=== PATIENT | female | born 1945 | race Caucasian/White ===

== ENCOUNTER 2019-03-23 17:16 | Inpatient (IN) ==
--- NOTE | 2019-03-23 18:05 | PROVIDER DOCUMENTATION ---
HPI-Musculoskeletal Pain/Inj - GENERAL Chief Complaint: Fall Stated Complaint: fall Time Seen by Provider: 03/23/19 17:20 Source: patient, family - HX OF PRESENT ILLNESS-MUSKULOSKELTAL Nature of Presenting Problem: [id number] presents to the ER with c/o left hip and leg pain after falling out of her chair. She states she was attempting to sit and missed the chair all together. She was unable to pull herself out of the floor and called EMS. Quality of Pain: reports: sharp Severity in ED: severe Onset/Duration: 1 hour ago Timing: constant Modifying Factors: improves with: immobilization Any recent injury?: Yes (fall) Locality of Occurance: Home Similar Symptoms Previously?: No Recently seen or treated by another doctor?: No - FALL INJURY Location of Pain/Injury: reports: pelvis (L hip) Pain Radiation: reports: no radiation (left leg) Reason for Fall: reports: other (missed the chair) Symptoms prior to fall:: reports: none Loss of Consciousness: no loss of consciousness Injury Associated Symptoms: reports: unable to bear weight - HIP/PELVIS PAIN/INJURY Hip Pain Location: reports: hip (L) Pain Radiation: reports: lower legs (left) - LOWER EXTREMITY PAIN/INJURY Lower Extremities Pain: hip: left Review of Systems - Adult - REVIEW OF SYSTEMS - ADULT Constitutional: reports: see HPI. denies: chills, fever Eyes: reports: no symptoms reported Ears, Nose, Mouth & Throat: reports: no symptoms reported Cardiovascular: reports: no symptoms reported. denies: chest pain Respiratory: reports: no symptoms reported. denies: dyspnea on exertion, shortness of breath, wheezing Gastrointestinal: reports: no symptoms reported Genitourinary: reports: no symptoms reported Musculoskeletal: reports: see HPI, joint pain (left hip and pelvis) Integumentary: reports: no symptoms reported Neurological: reports: no symptoms reported Psychiatric: reports: no symptoms reported Endocrine: reports: no symptoms reported Hematologic/Lymphatic: reports: no symptoms reported Allergic/Immunologic: reports: no symptoms reported All Other Systems: Reviewed and Negative Past History - Adult - PAST MEDICAL HISTORY-ADULT Review of Records: reports: Old Records Reviewed, Nursing Assessment Review, Medications Reviewed, Social history reviewed & non-contributory. Major Childhood Illnesses: reports: denies history Cardiovascular: reports: CAD, HTN, hyperlipidemia Respiratory: reports: asthma Gastrointestinal: reports: denies history Obstetrical/Gynecological: reports: denies history Genitourinary: reports: kidney disease Musculoskeletal: reports: denies history Neurological: reports: denies history Endocrine/Immune: reports: Diabetes Other Conditions: reports: denies history - PRIOR SURGERIES/PROCEDURES Surgical/Procedure History: reports: hysterectomy, orthopedic (extremity), other (parathyroid surgery) - IMMUNIZATION STATUS Childhood Immunizations: See Nurse Assessment Flu Vaccine: See Nurse Assessment - FAMILY HISTORY Family History: CAD over 55 yo, sudden , CAD under 55yo - SOCIAL HISTORY Substance Use: none/never Alcohol Use Frequency: never Living Situation: family Physical Exam-Injury Related - Physical Exam-Injury Related Initial Vital Signs Reviewed: Yes General Appearance: alert, mild distress Eyes: PERRL/EOMI, pink conjunctivae Head, Ears, Nose, Mouth & Throat: normocephalic/atraumatic, moist mucous membranes Neck: non-tender, full range of motion, supple, normal inspection Respiratory: chest non-tender, lungs clear, normal breath sounds Cardiovascular: normal peripheral pulses, regular rate, rhythm Peripheral Pulses: radial (R): 2+, radial (L): 2+, dorsalis-pedis (R): 2+, dorsalis-pedis (L): 2+ Abdominal Exam: normal bowel sounds, non tender, soft Extremity: other ( limb shortening with external rotation of LLE) Integumentary: normal color, warm/dry Neurologic: no motor/sensory deficits Psych/Mental Status: normal mood/affect, oriented x 3 - Glascow Coma Score Best Eye Response ([place]): (4) open spontaneously Best Verbal Response ([place]): (5) oriented Best Motor Response ([place]): (6) obeys commands [place] Total: 15 Progress - PLAN OF CARE/RESULTS Progress/Plan/Lab Results: Vital Signs - 8 hr 03/23/19 17:32 Temperature 98.2 F Pulse Rate 85 Respiratory Rate 16 Blood Pressure 161/90 Laboratory Results - last 24 hr 03/23/19 03/23/19 03/23/19 17:53 17:53 17:53 WBC 4.21 L RBC 2.96 L Hgb 9.0 L Hct 27.4 L MCV 92.6 MCH 30.4 MCHC 32.8 L RDW Std Deviation 13.5 Plt Count 217 MPV 10.7 H Immature Gran % (Auto) 1.2 H Neut % (Auto) 64.6 Lymph % (Auto) 23.5 [place] % (Auto) 8.1 Eos % (Auto) 2.1 Baso % (Auto) 0.5 Immature Gran # (Auto) 0.05 H Neut # (Auto) 2.72 Lymph # (Auto) 0.99 L [place] # (Auto) 0.34 Eos # (Auto) 0.09 Baso # (Auto) 0.02 Sodium 145 Potassium 3.7 Chloride 111 H Carbon Dioxide 21 L Anion Gap 13 BUN 42 H Creatinine 1.2 H Estimated GFR/1.73 m2 44 BUN/Creatinine Ratio 35 Glucose 176 H Calculated Osmolality 303 Calcium 8.1 L Total Bilirubin 0.25 AST 21 ALT 18 Alkaline Phosphatase 56 Total Protein 5.8 L Albumin 3.7 Globulin 2.1 Albumin/Globulin Ratio 1.8 Urine Source CATH Urine Color STRAW Urine Turbidity CLEAR Urine pH 7.0 Ur Specific [place] 1.008 Urine Protein NEGATIVE Ur Glucose (Stick) NEGATIVE Ur Ketones (Stick) NEGATIVE Urine Blood NEGATIVE Urine Nitrite NEGATIVE Urine Bilirubin NEGATIVE Urobilinogen Dipstick NORMAL Urine Leukocytes NEGATIVE Urine WBC (Auto) <10 Urine RBC (Auto) <10 U Epithel Cells (Auto) <10 Urine Bacteria (Auto) NEGATIVE Orders Category Date Time Status [place] [facility] Insertion ORDERED Care 03/23/19 17:[address] HEAD W/O CONTRAST [CT] Stat Exams 03/23/19 17:37 Ordered XRAY PELVIS W/HIP 2-3VW LT [RAD] Stat Exams 03/23/19 17:34 Completed CBC WITH ELECTRONIC DIFF [HEME] Stat Lab 03/23/19 17:53 Completed COMPREHENSIVE METABOLIC PANEL [CHEM] Stat Lab 03/23/19 17:53 Completed UA NIMS W/REFLEX CULT [URINALYSIS] Stat Lab 03/23/19 17:53 Completed 0.9% Sodium Chloride Inj [Ns] 1,000 ml Med 03/23/19 19:30 Ordered IV 125 mls/hr Morphine Med 03/23/19 18:53 Discontinued 2 mg IV NOW ONE EKG [EKG] Stat Ther 03/23/19 17:35 Ordered patient and family verbalize an understanding of POC and agree with treatment rendered here today. Result Diagrams: 03/23/19 17:53 03/23/19 17:53 - XRAY 1 XRAY: Left XRAY Study: Hip (FINDINGS: There is an intertrochanteric fracture to the left hip. Mild compaction and rotation. The femoral head is not dislocated. No fracture to the bony pelvis. Severe atherosclerosis. IMPRESSION: Intertrochanteric fracture to the left hip.) - CONSULTS/PCP/HOSPITALIST Notification #1 *Consult/PCP/Hospitalist*: Dr Barker Time Discussed: 19:29 Reason/Comments: hip fracture Consult Disposition: Admit (admit to hospitalist and place on consult list) #2 Consult: Dr Reece Time Discussed: 19:32 Reason/Comments: Hip Fracture Consult Disposition: Admit Departure - Departure Date of Disposition Decision: 03/23/19 Time of Disposition Decision: 19:32 DIAGNOSIS: Intertrochanteric fracture of left hip Qualifiers: Encounter type: initial encounter Fracture type: closed Disposition: ADMITTED INPATIENT 09 Certified Medical Emergency: Emergent Condition: Critical Additional Freetext Instructions: ED Follow Up Instructions: You have been treated by a care provider in the Emergency Department. These instructions are being provided to you so you can have an understanding of how to care for yourself upon discharge. Upon discharge from the Emergency Department, you are responsible for making arrangements for follow-up care by a physician of your choice. Take all prescribed medications as directed. Return to the Emergency Department immediately for any new or worsening symptoms. You may call the Physician Referral phone number at [phone] to obtain a list of Physicians who are taking new patients. Referrals and Follow-Ups: Armando Dawn [Primary Care Provider] - - Critical Care Note This patient required my direct & personal management of CC.: No Attestation - Physician/ WILFREDO Attestation Patient care was provided by Advanced Practice Provider:: Yes Advanced Practice Provider:: Nayan Dietz Advanced Practice Provider documentation review:: The Mid-level provider documentation, treatment plan and medical decision making was reviewed by the physician who agrees with all treatment and medical decision making by the P. The physician spent face to face time with patient:: No Advanced Practice Provider documentation review:: Supervising physician onsite and consulted in the evaluation and care of this patient. The physician did not have a face to face encounter with the patient.
[2019-03-23 18:32] LABS: URINE SOURCE CATH
[2019-03-23 18:39] LABS: BILIRUBIN URINE NEGATIVE (NEGATIVE); BLOOD URINE NEGATIVE (NEGATIVE); COLOR STRAW; GLUCOSE URINE NEGATIVE (NEGATIVE); KETONE URINE NEGATIVE (NEGATIVE); LEUKOCYTES URINE NEGATIVE (NEGATIVE); NITRITE URINE NEGATIVE (NEGATIVE); PROTEIN URINE NEGATIVE (NEGATIVE); SP GRAVITY URINE 1.008; TURBIDITY URINE CLEAR (CLEAR); UROBILINOGEN URINE NORMAL (NORMAL)
[2019-03-23 18:41] LABS: UR EPITHELIAL CELLS <10 /HPF (<10); URINE BACTERIA NEGATIVE /HPF; URINE RBC <10 /HPF (<10); URINE WBC <10 /HPF (<10)
[2019-03-23 18:42] LABS: BASO# 0.02 X1000 (0.0-0.2); BASO% 0.5 % (0.0-0.8); EOS# 0.09 X1000 (0.0-0.7); EOS% 2.1 % (0.0-10.0); HEMATOCRIT 27.4 % (37.0-47.0); IMM GRAN# 0.05 X1000 (0.0-0.04); IMM GRAN% 1.2 % (0.0-0.5); LYMPH# 0.99 X1000 (1.2-3.4); LYMPH% 23.5 % (20.5-51.1); MCH 30.4 PG (27-31); MCHC 32.8 g/dL (33-37); MCV 92.6 FL (81-99); MONO# 0.34 X1000 (0.11-0.59); MONO% 8.1 % (1.7-9.3); MPV 10.7 FL (7.4-10.4); NEUT# 2.72 X1000 (1.4-6.5); NEUT% 64.6 % (42.2-75.2); PLT 217 X1000 (130-400); RBC 2.96 XMIL (4.2-5.4); RDW 13.5 % (11.5-14.5); WBC 4.21 X1000 (4.8-10.8)
[2019-03-23] MEDS ORDERED: MORPHINE IV ONE ×2 (18:53→20:25)
[2019-03-23 19:11] LABS: CALCIUM 8.1 mg/dL (8.8-10.2); CREATININE 1.2 mg/dL (0.5-0.9); POTASSIUM 3.7 mmol/L (3.5-5.1); TOTAL BILIRUBIN 0.25 mg/dL (0.20-1.00)
[2019-03-23 19:12] LABS: ALB/GLOB RATIO 1.8; ALBUMIN 3.7 g/dL (3.5-5.0); TOTAL PROTEIN 5.8 g/dL (6.3-8.3)
--- NOTE | 2019-03-23 19:16 | Diag Imaging Result Doc PS360 ---
EXAM: XRAY PELVIS W/HIP 2-3VW LT HISTORY: Fall TECHNIQUE: Pelvis and left hip, four views COMPARISON: None. FINDINGS: There is an intertrochanteric fracture to the left hip. Mild compaction and rotation. The femoral head is not dislocated. No fracture to the bony pelvis. Severe atherosclerosis. IMPRESSION: Intertrochanteric fracture to the left hip. Electronically signed by Andrea Mcdonnell 03/23/2019 7:13 PM
[2019-03-23] MEDS ORDERED: NS 1,000 ML IV ONE (19:30)
[2019-03-23] MEDS ORDERED: LASIX PO PRN (19:34)
[2019-03-23] MEDS ORDERED: CATAPRES-TTS-3 TD SCH (19:45)
--- NOTE | 2019-03-23 20:06 | Diag Imaging Result Doc PS360 ---
EXAM: CT HEAD W/O CONTRAST HISTORY: fall TECHNIQUE: CT head without contrast COMPARISON: None. FINDINGS: No parenchymal hemorrhage. No epidural or subdural hematoma. No subarachnoid hemorrhage. Chronic microvascular ischemic changes. No mass identified on this noncontrasted exam. No hydrocephalus. No skull fracture. IMPRESSION: No hemorrhage. No injury. This exam was performed using automated exposure control, adjustment of mA or kV according to patient size, and/or use of iterative reconstruction technique. Electronically signed by Andrea Mcdonnell 03/23/2019 8:03 PM
[2019-03-23] MEDS ORDERED: VASOTEC PO SCH (21:00)
[2019-03-23] MEDS ORDERED: RANEXA PO SCH (21:00)
[2019-03-23] MEDS ORDERED: TYLENOL PO PRN (21:29)
[2019-03-23] MEDS ORDERED: ZOFRAN IV PRN (21:29)
[2019-03-23] MEDS ORDERED: OXY IR PO PRN (21:29)
--- NOTE | 2019-03-23 21:41 | HISTORY AND PHYSICAL ---
This is a patient of Dr. Armando Dawn. REASON FOR ADMISSION: Left hip pain off mechanical fall this evening. HISTORY OF PRESENT ILLNESS: Ms. Hannah Avitia is a 73-year-old woman who has a past medical history of congestive heart failure with EF of 60% to 65% in October 2017, COPD, hypertension, coronary artery disease, chronic kidney disease, type 2 diabetes, hyperlipidemia. She reports that she was trying to sit on her chair and missed it. She slipped on the floor and landed on the left side of her hip. She denies any loss of consciousness or hitting her head on the floor. As soon as she hit the floor, her grandson came into the room and tried to get up, but because she was in such excruciating pain the whole idea was ditched. They then called EMS, brought her into the ER, and her radio-imaging findings done in the ER of the hip and pelvis showed the following findings: An intertrochanteric fracture of the left hip is noted. Dr. Barker, the orthopedic surgeon, was notified and wants the hospitalist service to admit and he will see the patient tomorrow. Other than the pain in her left hip or left leg, she has no other complaints other than chronic constipation, but denies any cardiorespiratory symptoms. No genitourinary symptoms. Denies any new arthralgias or rash. No polyuria or polydipsia. No headache or visual symptoms. REVIEW OF SYSTEMS: Twelve system review was done. Positive findings noted as above. ALLERGIES: Bactrim and niacin and metformin. HOME MEDICATIONS: Patient is taking amlodipine 10 mg daily, Atorvastatin 10 mg daily, Catapres TTS patch every weekly, Lasix 40 mg b.i.d. p.r.n., Neurontin 300 mg t.i.d., Synthroid 88 mcg daily, omeprazole 20 mg daily, Ranexa 500 mg b.i.d., Requip 0.5 mg t.i.d., Enalapril 20 mg b.i.d., aspirin 81 mg daily, Januvia 50 mg daily, Protonix 40 mg daily, ferrous sulfate 325 mg daily, Tricor 145 mg daily, B12 at 1000 mcg daily, albuterol inhaler 2 puffs every 6 hours p.r.n., tizanidine 4 mg b.i.d. PAST SURGICAL HISTORY: She has had a bowel large bowel obstruction with adhesiolysis. She has had a thyroidectomy and parathyroidectomy, appendectomy, neck surgery x2, hysterectomy, right shoulder surgery, cataract surgery. SOCIAL HISTORY: Does not smoke, drink, or use drugs. She is a . LABORATORY WORK: White count 4000, hemoglobin and hematocrit of 9 and 27, platelets 217,000. Normal differential. BUN is 42, creatinine 1.2. Glucose is 176, calcium 8.5. Urinalysis is clean. Head CT no acute intracranial process. EKG pending, not available for review. PHYSICAL EXAMINATION: VITAL SIGNS: On examination, blood pressure 161/90, heart rate 85, respirations 18, temperature is 98.2 degrees. GENERAL: She is an elderly, overweight woman who is in moderate distress from the pain in her left hip. She is alert and oriented to person and time. HEENT: Head is normocephalic, atraumatic. Eyes, BRYAN, EOMI. She is anicteric, not pale. ENT and oropharyngeal exam is grossly normal. No exudates or erythema. No cyanosis. NECK: Supple. No JVD or carotid bruit. No thyromegaly. No hepatojugular reflux. CHEST: Clear when auscultated with good air entry both lung alex. CARDIOVASCULAR: First and second heart sounds are heard. A soft 2/6 ejection systolic murmur. Rhythm is regular. ABDOMEN: Protuberant, soft, nontender. No mass, megaly, bowel sounds are normal. RECTAL: Deferred at this time. EXTREMITIES: Patient has good distal pulses, which are symmetrical, regular. She has 1+ pitting edema both lower extremities. No clubbing or peripheral cyanosis. NEUROLOGICAL: Grossly normal. No focal deficits appreciated. SKIN: Intact. No breakdown, lesions or erythema. MUSCULOSKELETAL: Exam is grossly normal except for sore except for a shortened left lower extremity, which is slightly externally rotated. ASSESSMENT: 1. Left intertrochanteric fracture of the left hip. 2. Chronic diastolic heart failure. 3. Coronary artery disease. 4. Type 2 diabetes. 5. Anemia of possible chronic inflammation. 6. Hypothyroidism. 7. Hyperlipidemia. 8. Hypertension. PLAN: Patient will be admitted to our service with Dr. Barker covering the orthopedic surgeon consulting. Should be kept n.p.o. overnight, and surgical intervention will be determined by Dr. Barker. For now, we will keep treating the patient symptomatically. She can continue antihypertensives provided her systolic blood pressure is less than 140 to 145 so as to avoid perioperative acute kidney injury. Otherwise, nothing acute to address. I have held the patient's aspirin, and we recommend start initiation of an 81 mg aspirin postoperatively or at least at the discretion of the orthopedic surgeon due to her underlying coronary artery disease. cc: MD Armando Ramos MD
[2019-03-23] MEDS: HUMALOG SUBQ SCH (22:00)
[2019-03-23] MEDS: MIRALAX PO SCH (22:00)
[2019-03-24] MEDS: NS 1,000 ML IV SCH ×4 (01:30→21:56)
[2019-03-24] MEDS: MORPHINE IV PRN ×2 (01:30→05:25)
[2019-03-24 05:56] LABS: BASO# 0.02 X1000 (0.0-0.2); BASO% 0.4 % (0.0-0.8); EOS# 0.11 X1000 (0.0-0.7); EOS% 2.4 % (0.0-10.0); HEMATOCRIT 30.6 % (37.0-47.0); IMM GRAN# 0.03 X1000 (0.0-0.04); IMM GRAN% 0.7 % (0.0-0.5); LYMPH# 1.42 X1000 (1.2-3.4); MCH 30.2 PG (27-31); MCHC 32.7 g/dL (33-37); MCV 92.4 FL (81-99); MONO# 0.37 X1000 (0.11-0.59); MONO% 8.1 % (1.7-9.3); MPV 10.6 FL (7.4-10.4); NEUT# 2.63 X1000 (1.4-6.5); NEUT% 57.4 % (42.2-75.2); PLT 223 X1000 (130-400); RBC 3.31 XMIL (4.2-5.4); RDW 13.9 % (11.5-14.5); WBC 4.58 X1000 (4.8-10.8)
[2019-03-24 06:04] LABS: RETIC% 1.6 % (0.8-2.1); RETIC-HE 34.1 PG (28.2-36.6)
[2019-03-24 06:19] LABS: MAGNESIUM 1.6 mg/dL (1.5-2.7)
[2019-03-24 06:20] LABS: CALCIUM 9.2 mg/dL (8.8-10.2); CREATININE 1.2 mg/dL (0.5-0.9); POTASSIUM 3.9 mmol/L (3.5-5.1)
[2019-03-24 06:58] LABS: TSH 6.27 uIUmL (0.27-4.20)
[2019-03-24] MEDS ORDERED: SYNTHROID PO SCH (07:00)
[2019-03-24] MEDS ORDERED: PRILOSEC PO SCH (07:00)
[2019-03-24] MEDS: HUMALOG SUBQ SCH ×4 (07:11→22:09)
--- NOTE | 2019-03-24 08:11 | ORTHOPAEDICS CONSULTATION ---
DATE: 03/24/201 HISTORY OF PRESENT ILLNESS: Ms. Avitia is seen status post a fall with left hip pain. She was admitted by the Hospitalist. She complains of pain and tenderness about the left hip. PAST MEDICAL HISTORY: Significant for history of heart failure in the past, hypertension, coronary artery disease, chronic renal disease, type 2 diabetes, hyperlipidemia. MEDICATIONS: As listed per the hospital admission. SOCIAL HISTORY: She is a household ambulator at best. Resides with family in the area. PHYSICAL EXAMINATION: Reveals no significant tenderness about the spine, upper extremities or right lower extremity. She has tenderness to palpation over the left hip. There are no open wounds. She is motor and sensory intact. IMAGING: X-rays reviewed, show a left intertrochanteric hip fracture. ASSESSMENT: Left intertrochanteric hip fracture. PLAN: We will plan on proceeding with surgical stabilization of the hip. I have discussed the risks and benefits with the patient and family, including no guarantees regarding outcome, possibility of nonunion, malunion, risk of bleeding, infection, loss of limb or life, damage to tendon, nerve, or blood vessel and other imponderables. She understands this and is willing to proceed. We will plan on proceeding with that in the near future. cc: Marciano Barker MD
[2019-03-24] MEDS ORDERED: FENTANYL ONE (08:20)
[2019-03-24] MEDS ORDERED: VERSED ONE (08:20)
[2019-03-24] MEDS ORDERED: DIPRIVAN 1% ONE (08:21)
[2019-03-24] MEDS ORDERED: REQUIP PO SCH (09:00)
[2019-03-24] MEDS ORDERED: NEURONTIN PO SCH (09:00)
[2019-03-24] MEDS ORDERED: NORVASC PO SCH (09:00)
[2019-03-24] MEDS ORDERED: LIPITOR PO SCH (09:00)
[2019-03-24] MEDS ORDERED: KEFZOL 2 GM/D5W 2 GM/50 ML IVPB ONE (09:07)
--- NOTE | 2019-03-24 09:13 | EKG Report ---
Test Performed on : 03/24/2019 06:26:05 AM Test Reason : chest pain Blood Pressure : / mmHG Vent. Rate : 092 BPM Atrial Rate : 092 BPM P-R Int : 188 ms QRS Dur : 104 ms QT Int : 384 ms P-R-T Axes : 051 001 003 degrees QTc Int : 474 ms Normal sinus rhythm. Normal ECG When compared with ECG of 17-JUL-2018 11:35, T wave inversion no longer evident in Anterior leads Confirmed by Josephine Lunsford MD ([id number]) on 03/26/2019 8:33:34 AM
[2019-03-24] MEDS ORDERED: NEOSPORIN G.U. IRRIGANT ONE (09:43)
[2019-03-24] MEDS ORDERED: VENTOLIN HFA ONE (10:07)
[2019-03-24] MEDS ORDERED: ZOFRAN ONE (10:07)
[2019-03-24] MEDS ORDERED: OFIRMEV 1000 MG/ISOTONIC SOLN 1,000 MG/100 ML BOTTLE ONE (10:07)
[2019-03-24] MEDS ORDERED: DECADRON ONE (10:07)
[2019-03-24] MEDS ORDERED: NEO-SYNEPHRINE ONE (10:07)
[2019-03-24] MEDS ORDERED: XYLOCAINE-MPF 2% ONE (10:07)
[2019-03-24] MEDS: MORPHINE ONE ×3 (10:42→11:51)
[2019-03-24] MEDS ORDERED: NS 1,000 ML ONE (10:53)
[2019-03-24] MEDS ORDERED: MILK OF MAGNESIA PO PRN (11:38)
[2019-03-24] MEDS ORDERED: MORPHINE IV PRN (11:38)
[2019-03-24] MEDS: MIRALAX PO SCH ×2 (11:43→21:56)
[2019-03-24] MEDS ORDERED: HALDOL IV PRN (11:45)
--- NOTE | 2019-03-24 13:23 | OPERATIVE NOTE ---
PROCEDURE DATE: 03/23/2019 PREOPERATIVE DIAGNOSIS: Intertrochanteric left hip fracture. POSTOPERATIVE DIAGNOSIS: Intertrochanteric left hip fracture. PROCEDURE: Trochanteric femoral nail fixation, left intertrochanteric hip fracture. SURGEON: Luis Carlos Barker MD. ANESTHESIA: General. COMPLICATION: None. PROCEDURE IN DETAIL: A 73-year-old female presents for surgical fixation of left intertrochanteric hip fracture. Risks, benefits, and no guarantees were discussed, and she is willing to proceed. She was taken to the operating room and satisfactory anesthesia obtained. The left hip was positioned on the [place] table. It was a relatively nondisplaced stable intertrochanteric hip fracture. The C-arm was used to confirm operative position and reduction of the hip. The hip was prepped and draped in usual sterile fashion. A time-out was taken to confirm operative site, procedure and patient. A lateral approach to the hip was then undertaken through a roughly 1 inch incision proximal greater trochanter, and dissection carried down to the tip of the trochanter. A guidewire was then advanced through the tip of the trochanter and down the intramedullary canal. This was reamed with an entry reamer and exchanged for a ball-tip guidewire. A 380 nail was then measured and the guidewire reamed with a 12 mm reamer. The nail was then placed over the guidewire and guidewire withdrawn. The nail was fully seated and noted to have secure stability distally. The accessory lateral incision was made for placement of the helical blade. The guide pin was advanced down to the bone, and a guide pin placed through the provided drill guide, across the fracture and into the central aspect of the femoral neck and head. Care was taken to avoid any articular penetration. A helical blade was then measured at roughly 95 and the provided reamer placed over the guidewire for the helical blade. The blade was then inserted over the guidewire and guidewire removed. The anti-rotation screw was set and the guide removed. The C-arm was used to verify accurate hardware placement, as well as fracture reduction. Due to the stability of the fracture, it was felt to not be necessary to place a distal locking screw. The wounds were irrigated and then closed in layers with 2-0 Vicryl followed by skin beto. Sterile dressings completed the closure, and the patient was recovered from anesthesia, and transferred to the recovery room in stable condition. No intraoperative complications were noted. Instrument count and sponge count were correct at the time of closure. cc: Marciano Barker MD
[2019-03-24] MEDS: TYLENOL PO SCH ×2 (14:30→20:07)
[2019-03-24] MEDS: OXY IR PO PRN ×2 (15:47→20:05)
[2019-03-24] MEDS ORDERED: VENTOLIN HFA INH PRN (16:44)
--- NOTE | 2019-03-24 17:26 | PROGRESS NOTE ---
DATE: 03/24/2019 SUBJECTIVE: She says her pain is not under control. She is pretty uncomfortable. She just had surgery today though I think. OBJECTIVE: Blood pressure is I think pretty stable 100s over 70s, heart rate 90, respiratory rate 16, temperature was 97.5 degrees.Cardiovascular: Regular rate and rhythm. Pulmonary: Bilateral breath sounds clear to auscultation. GI: Soft, nontender, nondistended. Bowel sounds are positive. LABORATORY DATA: White count 4.5, hemoglobin and hematocrit 10 and 30, platelets of 223,000, creatinine is 1.2. Iron is a bit low at 39, 32. PROBLEM LIST: 1. Left hip fracture intertrochanteric fracture postoperative day 0. She seems to be doing okay. We will continue to monitor. Pain is not under complete control so I have increased pain medicine to Dilaudid and we will see how she does with that. 2. Chronic diastolic heart failure. She seems to be stable. We will continue to monitor her blood pressure, maintain her on her regular medications. 3. Diabetes. We will continue to monitor. I am going to switch her diet to diabetic diet. 4. Disposition will pursue rehab planning once she is stabilized. cc: Sky Griggs MD
[2019-03-24] MEDS: KEFZOL 1 GM/D5W 1 GM/50 ML IVPB IV SCH (20:07)
[2019-03-24] MEDS: COLACE PO SCH (21:56)
[2019-03-24] MEDS: DILAUDID IV PRN (21:57)
[2019-03-25] MEDS: KEFZOL 1 GM/D5W 1 GM/50 ML IVPB IV SCH ×2 (01:50→10:23)
[2019-03-25] MEDS: DILAUDID IV PRN ×5 (02:26→22:50)
[2019-03-25] MEDS: TYLENOL PO SCH ×5 (06:57→19:43)
[2019-03-25] MEDS: HUMALOG SUBQ SCH ×4 (07:01→22:50)
[2019-03-25 07:06] LABS: CALCIUM 7.9 mg/dL (8.8-10.2); CREATININE 1.2 mg/dL (0.5-0.9); POTASSIUM 4.6 mmol/L (3.5-5.1)
[2019-03-25 07:46] LABS: HEMATOCRIT 21.8 % (37.0-47.0); HEMOGLOBIN 7.1 g/dL (12.0-16.0)
--- NOTE | 2019-03-25 09:42 | ORTHOPAEDICS PROGRESS NOTE ---
DATE: 03/25/2019 Ms. Avitia is seen status post pinning of her hip. She is afebrile with stable vital signs. Hematocrit is down to 21.8. She is slow to mobilize. Her bandage is clean and dry. There are no signs of infection or DVT. She can be gradually mobilized. I will defer transfusion to the hospitalist. We will check on her again tomorrow and she can be transferred to rehab when a bed is available. cc: Marciano Barker MD
[2019-03-25] MEDS: PERIDEX MT SCH ×2 (10:22→22:49)
[2019-03-25] MEDS: MIRALAX PO SCH ×2 (10:23→22:49)
[2019-03-25] MEDS: JANUVIA PO SCH (10:23)
[2019-03-25] MEDS: FERROUS SULFATE PO SCH (10:23)
[2019-03-25] MEDS: OXY IR PO PRN ×2 (10:23→17:14)
[2019-03-25] MEDS: ASPIRIN PO SCH (10:23)
[2019-03-25] MEDS ORDERED: BENADRYL PO ONE (10:48)
[2019-03-25] MEDS ORDERED: NS 500 ML IV ONE (10:48)
[2019-03-25] MEDS ORDERED: TYLENOL PO ONE (10:48)
[2019-03-25] MEDS: NS 1,000 ML IV SCH ×3 (12:42→21:25)
[2019-03-25] MEDS ORDERED: MOVANTIK PO ONE (17:28)
[2019-03-25] MEDS ORDERED: LASIX IV ONE (17:29)
[2019-03-25] MEDS ORDERED: CATAPRES-TTS-1 TD SCH (17:45)
--- NOTE | 2019-03-25 17:48 | PROGRESS NOTE ---
DATE: 03/25/2019 SUBJECTIVE: Patient has no major complaints, except she is bloated. Her blood pressure is high. She is not on her blood pressure medications. Pain is not completely under control. OBJECTIVE: Blood pressure 144/54 to 92, heart rate 101, respiratory 18, temperature 94 degrees.Cardiovascular: Regular rate and rhythm. Pulmonary: Bilateral breath sounds diminished at the bases. GI: Soft, protuberant. LABORATORY DATA: Her hemoglobin and hematocrit has dropped fairly precipitously to 7 and 21 from a level of 10 and 30 yesterday. Her creatinine is at 1.2, glucose in the 200s. PROBLEM LIST: 1. Left intertrochanteric femoral fracture, postoperative day 1. She is doing well. Pain is better under control. Hemoglobin and hematocrit has dropped. Orthopedics is following. 2. Chronic diastolic failure. She seems stable, but we will give her Lasix. 3. Anemia associated with acute blood loss. Hemoglobin and hematocrit has dropped fairly precipitously, so I am going to go ahead and give her 1 unit of blood. 4. Diabetes we will continue to follow blood sugars. Continue regular medications. 5. Hypertension which is not very well controlled. Most of her medicines were continued, but somehow they were discontinued. So I do not know, but we will put her back on all her regular medications. cc: Sky Griggs MD
[2019-03-25] MEDS: NORVASC PO SCH (18:41)
[2019-03-25] MEDS: VASOTEC PO SCH (22:49)
[2019-03-25] MEDS: RANEXA PO SCH (22:49)
[2019-03-25] MEDS: COLACE PO SCH (22:49)
[2019-03-26] MEDS: DILAUDID IV PRN ×3 (02:21→11:11)
[2019-03-26] MEDS: TYLENOL PO SCH ×2 (04:35→11:32)
[2019-03-26 05:59] LABS: HEMATOCRIT 24.5 % (37.0-47.0); HEMOGLOBIN 7.9 g/dL (12.0-16.0)
[2019-03-26] MEDS: HUMALOG SUBQ SCH ×2 (06:48→11:18)
[2019-03-26] MEDS ORDERED: MOVANTIK PO SCH (07:00)
[2019-03-26] MEDS ORDERED: SYNTHROID PO SCH (07:00)
--- NOTE | 2019-03-26 07:06 | ORTHOPAEDICS PROGRESS NOTE ---
DATE: 03/26/2019 Ms. Avitia is seen status post pinning of her hip. She is slow to mobilize. Currently, she is afebrile with stable vital signs. Her bandages and incisions are clean and dry. She can be transferred to a rehab center at this point. She can be touchdown weightbearing on that right hip. [place] can be removed in 10 days. I will need to follow up with her in the office in roughly 1 month for followup x-rays. We will be available as needed at this point. cc: Marciano Barker MD
[2019-03-26] MEDS: OXY IR PO PRN ×2 (08:40→12:41)
[2019-03-26] MEDS: ASPIRIN PO SCH (09:10)
[2019-03-26] MEDS: PERIDEX MT SCH (09:10)
[2019-03-26] MEDS: FERROUS SULFATE PO SCH (09:10)
[2019-03-26] MEDS: RANEXA PO SCH (09:10)
[2019-03-26] MEDS: VASOTEC PO SCH (09:10)
[2019-03-26] MEDS: MIRALAX PO SCH (09:10)
[2019-03-26] MEDS: JANUVIA PO SCH (09:10)
[2019-03-26] MEDS: NORVASC PO SCH (09:10)
[2019-03-26] MEDS: NS 1,000 ML IV SCH ×2 (09:44→12:36)
[2019-03-26] MEDS ORDERED: LACTULOSE PO SCH (10:15)
[2019-03-26 11:54] VITALS: BP 154/56
--- NOTE | 2019-03-26 13:07 | DISCHARGE SUMMARY ---
ADMISSION DATE: 03/23/2019 DISCHARGE DATE: 03/26/2019 PRIMARY CARE PHYSICIAN: Dr. Armando Dawn. CONSULTATIONS: Orthopedics. ADMISSION DIAGNOSES: 1. Left intertrochanteric fracture of the left hip. 2. Chronic diastolic heart failure. 3. Coronary artery disease. 4. Type 2 diabetes. 5. Anemia of possible chronic inflammation. 6. Hypothyroidism. 7. Hyperlipidemia. 8. Hypertension. DISCHARGE DIAGNOSES: 1. Left intertrochanteric femoral fracture, postoperative day 2. 2. Chronic diastolic failure. 3. Anemia associated with acute blood loss. 4. Diabetes type 2. 5. Hypertension, uncontrolled. SUMMARY OF FINDINGS: This is a 73-year-old female who presents to the emergency room after she states she was trying to sit in her chair and missed it, slipped on the floor, and landed on the left side of her hip. Denied any loss of consciousness or hitting of her head on the floor but as soon as she hit the floor, her grandson came in the room and she tried to get up but because she was in such excruciating pain, they decided to call EMS who brought her to the emergency room. Her imaging done in the ER found that the hip and pelvis showed an intertrochanteric fracture of the left hip. We consulted orthopedics. She had a trochanteric femoral nail fixation of the left intertrochanteric hip fracture done on 03/23/2019. Tolerated the procedure well. She has received 1 unit of packed red blood cells. Her hemoglobin and hematocrit today are stable at 7.9 and 24.5. Her blood pressure is improved now that she has been placed back on her home medications, at 154/56. She has been seen by physical therapy, doing well, and it is now felt that she can safely be discharged to [facility] swing bed unit for rehab in stable condition. DISCHARGE MEDICATIONS: Include a Ventolin inhaler 2 puffs q.6 hours p.r.n., Januvia 50 mg p.o. daily, amlodipine 10 mg p.o. daily, aspirin 81 mg p.o. daily, Lipitor 10 mg p.o. daily, clonidine 3 mg topically q.7 days, vitamin B12 1000 mcg p.o. daily, Vasotec 20 mg p.o. b.i.d., fenofibrate 145 mg p.o. daily, ferrous sulfate 325 mg p.o. daily, Lasix 40 mg p.o. b.i.d. p.r.n., gabapentin 300 mg p.o. t.i.d., Icar C 1 p.o. daily, Xyzal 5 mg p.o. daily, Synthroid 88 mcg p.o. q.a.m., oxycodone IR 5 mg p.o. q.4 hours p.r.n., Protonix 40 mg p.o. daily, Ranexa 500 mg p.o. b.i.d., Xarelto 10 mg p.o. daily, Requip 0.5 mg p.o. t.i.d., tizanidine 4 mg p.o. b.i.d. FOLLOWUP: She will need to follow up with her primary care physician and with orthopedics once her rehab stay is complete. Appointments will be made at that time. TIME SPENT: This is a 35 minute discharge. Dictated by YANELI Morales for Sky Griggs MD cc: YANELI Morales MD Chad McElroy, MD
--- NOTE | 2019-03-27 05:18 | DISCHARGE SUMMARY ---
ADMISSION DATE: 03/23/2019 DISCHARGE DATE: 03/26/2019 The patient was seen day of discharge. She is more awake. She does not look as uncomfortable. Stomach is still somewhat distended. She did not have a bowel movement yet, but she is able to get up and around. She does not look quite as winded. Her physical exam diminished breath sounds at the bases, but otherwise unremarkable. I think she is stable today to go to the facility. She has a swing bed. Her hemoglobin and hematocrit has come up to 7.9 and 24.5 after 1 unit. She will be discharged on a bowel regimen and iron supplementation. Further orders per dictation. YANELI Morales is seen in conjunction. TIME SPENT: This is a 35 minute discharge. cc: Sky Griggs MD
== END 2019-03-26 14:03 | disposition swing bed (61) | DRG 481 ==
LOC: SUPCPDRO → ED 17:16 → 4N 20:41 → SUATTDRO 20:41 → 4N 21:19
PROVIDERS: ATTEND Internal Medicine

== ENCOUNTER 2019-10-16 06:25 | Inpatient (IN) ==
--- NOTE | 2019-10-10 17:23 | EKG Report ---
Test Performed on : 10/10/2019 5:16:08 PM Test Reason : PAT Blood Pressure : / mmHG Vent. Rate : 078 BPM Atrial Rate : 078 BPM P-R Int : 180 ms QRS Dur : 088 ms QT Int : 390 ms P-R-T Axes : 062 007 039 degrees QTc Int : 444 ms Normal sinus rhythm. Nonspecific T wave abnormality Borderline ECG When compared with ECG of 24-MAR-2019 06:26, Nonspecific T wave abnormality has replaced inverted T waves in Inferior leads Confirmed by Titi Elizabeth MD ([id number]) on 10/11/2019 9:27:15 PM
[2019-10-10 17:29] LABS: URINE SOURCE CLEAN CATCH
[2019-10-10 17:31] LABS: BASO# 0.03 X1000 (0.0-0.2); BASO% 0.9 % (0.0-0.8); BILIRUBIN URINE NEGATIVE (NEGATIVE); BLOOD URINE SMALL (NEGATIVE); COLOR YELLOW; EOS# 0.15 X1000 (0.0-0.7); EOS% 4.3 % (0.0-10.0); GLUCOSE URINE NEGATIVE (NEGATIVE); HEMATOCRIT 30.6 % (37.0-47.0); HEMOGLOBIN 9.6 g/dL (12.0-16.0); KETONE URINE NEGATIVE (NEGATIVE); LEUKOCYTES URINE LARGE (NEGATIVE); LYMPH# 1.18 X1000 (1.2-3.4); LYMPH% 33.5 % (20.5-51.1); MCH 29.7 PG (27-31); MCHC 31.4 g/dL (33-37); MCV 94.7 FL (81-99); MONO% 8.5 % (1.7-9.3); NEUT# 1.86 X1000 (1.4-6.5); NEUT% 52.8 % (42.2-75.2); NITRITE URINE NEGATIVE (NEGATIVE); PLT 226 X1000 (130-400); PROTEIN URINE TRACE mg/dL (NEGATIVE); RBC 3.23 XMIL (4.2-5.4); SP GRAVITY URINE 1.018; TURBIDITY URINE CLEAR (CLEAR); UROBILINOGEN URINE NORMAL (NORMAL); WBC 3.52 X1000 (4.8-10.8)
[2019-10-10 17:33] LABS: UR EPITHELIAL CELLS <10 /HPF (<10); URINE BACTERIA NEGATIVE /HPF; URINE RBC <10 /HPF (<10); URINE WBC 20-40 /HPF (<10)
[2019-10-10 17:43] LABS: INR 1.1; PROTIME 14.3 Seconds (11.0-16.0)
[2019-10-10 17:44] LABS: PTT 29.1 Seconds (22.3-41.8)
[2019-10-10 17:54] LABS: HEMOGLOBIN A1C 6.4 % (4.8-6.0)
[2019-10-10 18:29] LABS: CREATININE 1.6 mg/dL (0.5-0.9); POTASSIUM 4.9 mmol/L (3.5-5.1)
[2019-10-16] MEDS ORDERED: COLACE ONE (07:09)
[2019-10-16] MEDS ORDERED: PEPCID ONE (07:10)
[2019-10-16] MEDS ORDERED: KEFZOL 1 GM/D5W 1 GM/50 ML IVPB ONE (07:10)
[2019-10-16] MEDS ORDERED: REGLAN ONE (07:10)
[2019-10-16] MEDS ORDERED: LR 1,000 ML ONE (07:10)
[2019-10-16] MEDS ORDERED: LYRICA ONE (07:10)
[2019-10-16] MEDS ORDERED: DURAMORPH ONE (08:10)
[2019-10-16] MEDS ORDERED: TORADOL ONE (08:10)
[2019-10-16] MEDS ORDERED: MARCAINE 0.25% PF/EPI 1:200,000 ONE (08:10)
[2019-10-16] MEDS ORDERED: EXPAREL 1.3% ONE (08:11)
[2019-10-16] MEDS ORDERED: SODIUM CHLORIDE 0.9% ONE (08:11)
[2019-10-16] MEDS ORDERED: NEOSPORIN G.U. IRRIGANT ONE (08:11)
[2019-10-16] MEDS ORDERED: CYKLOKAPRON 1,000 MG/NS 2,000 MG/200 ML IVPB ONE (08:11)
[2019-10-16] MEDS ORDERED: VANCOMYCIN ONE (08:12)
[2019-10-16] MEDS ORDERED: DIPRIVAN 1% 500 MG/50 ML BOTTLE ONE (08:35)
[2019-10-16] MEDS ORDERED: FENTANYL ONE (08:40)
[2019-10-16] MEDS ORDERED: DIPRIVAN 1% ONE (10:28)
--- NOTE | 2019-10-16 11:01 | OPERATIVE NOTE ---
PROCEDURE DATE: 10/16/2019 PREOPERATIVE DIAGNOSIS: Degenerative joint disease, right knee. POSTOPERATIVE DIAGNOSIS: Degenerative joint disease, right knee. PROCEDURE PERFORMED: Right total knee replacement. SURGEON: Marciano Barker MD. COMMERCIAL LINES UNDERWRITER: Edu Lemus. Mr. Lemus was necessary for proper retraction and manipulation during the case. ANESTHESIA: Spinal. COMPLICATION: None. PROCEDURE IN DETAIL: A 73-year-old female presents for left total knee replacement. Risks, benefits, and no guarantees were discussed, and she is willing to proceed. She was taken to the operating room and satisfactory anesthesia obtained. The left knee was prepped and draped in usual sterile fashion. A time-out was taken to confirm operative site, procedure, and patient. The leg was wrapped with an Esmarch and tourniquet inflated to 300 mmHg. A midline incision was made followed by a medial quad tendon sparing arthrotomy. The patella was everted and resurfaced with freehand technique and subluxed laterally. The knee was flexed. An intramedullary hole made in the distal femur and the distal femoral cutting block secured in 5 degrees of valgus. Femoral resection was made and the femur sized to a DePuy Attune size 5 femoral implant. A finishing block was secured and the anterior, posterior, and chamfer cuts sequentially made. Any remaining osteophytes debrided. With the PCL retractor behind the tibia and the knee flexed, the tibial cutting block was secured. The tibial resection was made with care taken to preserve the collateral ligaments as well as any posterior neurovascular bundle. The tibia was sized to a size 5 tibial tray. A trial reduction was performed with an 8 mm thick poly with good soft tissue balance and stability. The patella was sized to a 35 medialized dome patella. The drill holes were placed for the patella and femoral implants and the trial components removed. The bony surfaces were thoroughly irrigated with pulsatile lavage. Cement with a gram of vancomycin was utilized to cement a DePuy size 5 rotating platform tibial base plate, a right size 5 standard width cruciate-retaining femoral component and a 35 medialized dome patella. Excess cement was removed with a [place] elevator. While the cement cured, the joint capsule was injected with Exparel and a Hemovac drain placed. After curing of the cement, a size 5, 8 mm thick rotating platform CR bearing was inserted in the tibial tray and the knee reduced. Final range of motion was 0 to 130 degrees with midline patellar tracking. The arthrotomy was copiously irrigated with irrigant. It was closed over the drain with #1 Vicryl in the arthrotomy, 2-0 Vicryl in the skin and a perennial skin closure. Sterile dressings were applied and tourniquet released with good return of capillary blood flow. No intraoperative complications were noted. Instrument count and sponge count were correct at the time of closure. cc: Marciano Barker MD
[2019-10-16] MEDS ORDERED: OFIRMEV 1000 MG/ISOTONIC SOLN 1,000 MG/100 ML BOTTLE ONE (11:15)
[2019-10-16] MEDS ORDERED: NS 1,000 ML ONE ×2 (11:23→12:00)
[2019-10-16] MEDS: DILAUDID ONE ×2 (11:26→11:45)
[2019-10-16] MEDS ORDERED: OXY IR ONE (12:06)
[2019-10-16] MEDS ORDERED: ZOFRAN ODT PO PRN (12:15)
[2019-10-16] MEDS ORDERED: OXY IR PO PRN (12:15)
[2019-10-16] MEDS ORDERED: ZOFRAN IV PRN (12:15)
[2019-10-16] MEDS ORDERED: MORPHINE IV PRN ×3 (12:15)
--- NOTE | 2019-10-16 12:27 | Diag Imaging Result Doc PS360 ---
KNEE 1-2 VIEWS-RIGHT - 10/16/2019 INDICATION: post op total knee TECHNIQUE: Two views COMPARISON: 01/16/2016 FINDINGS: There has been right total knee arthroplasty with patellar resurfacing. Alignment is anatomic. No hardware fracture or loosening. There is advanced calcified arterial disease of the popliteal artery. IMPRESSION: No complication. Electronically signed by Victorino Lee 10/16/2019 12:25 PM
[2019-10-16 15:37] LABS: URINE SOURCE CATH
[2019-10-16 15:41] LABS: BILIRUBIN URINE NEGATIVE (NEGATIVE); BLOOD URINE NEGATIVE (NEGATIVE); COLOR YELLOW; GLUCOSE URINE NEGATIVE (NEGATIVE); KETONE URINE NEGATIVE (NEGATIVE); LEUKOCYTES URINE NEGATIVE (NEGATIVE); NITRITE URINE NEGATIVE (NEGATIVE); PROTEIN URINE TRACE mg/dL (NEGATIVE); SP GRAVITY URINE 1.018; TURBIDITY URINE CLEAR (CLEAR); UROBILINOGEN URINE NORMAL (NORMAL)
[2019-10-16 15:43] LABS: UR EPITHELIAL CELLS <10 /HPF (<10); URINE BACTERIA NEGATIVE /HPF; URINE RBC <10 /HPF (<10); URINE WBC <10 /HPF (<10)
[2019-10-16] MEDS ORDERED: NITROGLYCERIN SL PRN (17:16)
[2019-10-16] MEDS ORDERED: ZANAFLEX PO PRN (17:16)
[2019-10-16] MEDS ORDERED: LASIX PO PRN (17:16)
[2019-10-16] MEDS: TYLENOL PO SCH ×2 (17:35→20:52)
[2019-10-16] MEDS: ULTRAM PO SCH ×2 (17:36→20:52)
--- NOTE | 2019-10-16 18:14 | CONSULTATION ---
DATE OF CONSULTATION: 10/16/2019 CONSULTING PHYSICIAN: Dr. Marciano Barker. REASON FOR CONSULT: Medical management. HISTORY OF PRESENT ILLNESS: This is a 73-year-old female with a history of congestive heart failure with preserved LV function, diabetes mellitus, hypertension, hypothyroid, paroxysmal atrial fibrillation and a history of renal cell carcinoma status post left nephrectomy. She underwent a right total knee today and we are being consulted for medical management. PAST MEDICAL HISTORY: 1. Congestive heart failure with preserved LV function. 2. Chronic obstructive pulmonary disease. 3. Hypertension. 4. Coronary artery disease. 5. Chronic kidney disease. 6. Diabetes mellitus type 2. 7. Hyperlipidemia. PAST SURGICAL HISTORY: Bowel obstructions, colon resection with adhesion lysis, thyroidectomy and parathyroidectomy, appendectomy, neck surgery x2, hysterectomy, and right shoulder surgery. SOCIAL HISTORY: She denies alcohol, tobacco, or illicit drug use. She is a . ALLERGIES: Sulfa, niacin, metformin. PHYSICAL EXAMINATION: General: This is a 73-year-old female who is lying on the stretcher in postop, drowsy, in no distress. Vital Signs: Blood pressure is 150/67 with a heart rate of 72, respirations are 16, temperature is 98.3 degrees oral, O2 saturations are 95 to 97 percent on room air. Eyes: Pupils are equal, round, react to light. EOMs are intact. Sclerae anicteric. HEENT: Head is normocephalic, atraumatic. Mucous membranes are moist. Neck: Supple with trachea midline. No JVD. Cardiovascular: Regular rate and rhythm. S1 and S2 appreciated. She has no lower extremity edema with peripheral pulses palpable x4 extremities. Pulmonary: Breath sounds are diminished. Chest rises and falls symmetric with respiration. Chest wall is nontender to palpation. Gastrointestinal: Abdomen is soft, nontender, nondistended. Bowel sounds in all 4 quadrants. Neurologic: She is sleepy, being postop. ASSESSMENT AND PLAN: 1. Status post right total knee replacement, followed by Dr. Barker. 2. Acute kidney injury in the setting of chronic kidney disease. We will renal dose medications, hold any renal toxic medications and trend labs daily. 3. Hypothyroid. We will continue her levothyroxine. 4. Hypertension. We will continue home medications as appropriate. 5. Diabetes mellitus. Pattern blood glucose and sliding scale insulin. 6. Chronic constipation. We will continue Linzess as at home. 7. Chronic obstructive pulmonary disease. We will check a BMP and hemoglobin and hematocrit as per Dr. Barker. Thank you for allowing us to participate in this patient's care. We will follow with you. Dictated by YANELI Abarca for Sade Brush MD cc: YANELI Abarca MD John R. Riehl, MD
--- NOTE | 2019-10-16 18:14 | ORTHOPAEDICS PROGRESS NOTE ---
DATE: 10/16/2019 SUBJECTIVE DATA: Ms. Avitia is seen postop day zero of her right total knee replacement. She reports she is doing well at this time. She states her pain is about 3/10. OBJECTIVE DATA: There is good sensation in the right lower extremity. Her bandages are clean and dry. There are good pedal pulses. There is negative Homans sign. Her vital signs are stable. ASSESSMENT: Degenerative joint disease right knee with right total knee arthroplasty. PLAN: Plan to keep Ms. Avitia in the hospital overnight. We will check back with her in the morning to see how she is doing. Dictated by YANELI Stevenson for Marciano Barker MD cc: YANELI Stevenson MD
[2019-10-16] MEDS: KEFZOL 1 GM/D5W 1 GM/50 ML IVPB IV SCH (18:19)
[2019-10-16] MEDS: NS 1,000 ML IV SCH (18:20)
[2019-10-16] MEDS: HUMALOG SUBQ SCH ×2 (19:32→23:42)
[2019-10-16] MEDS: PERIDEX MT SCH (20:50)
[2019-10-16] MEDS: NEURONTIN PO SCH (20:50)
[2019-10-16] MEDS: COLACE PO SCH (20:51)
[2019-10-16] MEDS: TRICOR PO SCH (20:51)
[2019-10-16] MEDS: RANEXA PO SCH (20:51)
[2019-10-16] MEDS: REQUIP PO SCH (20:51)
[2019-10-16] MEDS: VASOTEC PO SCH (20:52)
[2019-10-16] MEDS: PRAVACHOL PO SCH (20:52)
[2019-10-16] MEDS: OXY IR PO PRN (22:24)
[2019-10-17] MEDS: NS 1,000 ML IV SCH ×2 (00:59→14:15)
[2019-10-17] MEDS: KEFZOL 1 GM/D5W 1 GM/50 ML IVPB IV SCH (00:59)
[2019-10-17] MEDS: TYLENOL PO SCH ×4 (03:31→22:45)
[2019-10-17] MEDS: ULTRAM PO SCH ×4 (03:31→22:46)
[2019-10-17] MEDS: OXY IR PO PRN ×3 (05:19→14:22)
[2019-10-17] MEDS: HUMALOG SUBQ SCH ×4 (06:42→22:49)
[2019-10-17 07:12] LABS: HEMATOCRIT 27.9 % (37.0-47.0)
[2019-10-17 07:19] LABS: CALCIUM 8.7 mg/dL (8.8-10.2); CREATININE 1.4 mg/dL (0.5-0.9); POTASSIUM 4.9 mmol/L (3.5-5.1)
--- NOTE | 2019-10-17 07:33 | ORTHOPAEDICS PROGRESS NOTE ---
DATE: 10/17/2019 Ms. Avitia is seen status post total knee replacement. Currently, she is awake and alert. She has minimal complaints of pain. She is afebrile with stable vital signs. Her postop x-rays look good. We will plan on mobilizing her today and discontinuing the drains IV and [place]. She can be transferred to an inpatient rehab facility today or tomorrow when a bed is available. cc: Marciano Barker MD
[2019-10-17] MEDS: PERIDEX MT SCH ×2 (08:42→22:45)
[2019-10-17] MEDS: NORVASC PO SCH (08:42)
[2019-10-17] MEDS: SYNTHROID PO SCH (08:42)
--- NOTE | 2019-10-17 08:42 | Diag Imaging Result Doc PS360 ---
EXAM: CHEST-1 VIEW 10/17/2019 HISTORY: REHAB TECHNIQUE: AP portable at 0803 COMMENT: There is some platelike opacity present in the lingula which was less obvious on 10/25/2018. This may represent subsegmental atelectasis. Otherwise are has been no significant change considering differences in technique and inspiration. IMPRESSION: Lingular subsegmental atelectasis. Electronically signed by Madi Burrell 10/17/2019 8:40 AM
[2019-10-17] MEDS: NEURONTIN PO SCH ×2 (08:43→22:44)
[2019-10-17] MEDS: AMARYL PO SCH (08:43)
[2019-10-17] MEDS: RANEXA PO SCH ×2 (08:44→22:44)
[2019-10-17] MEDS: VASOTEC PO SCH ×2 (08:45→22:43)
[2019-10-17] MEDS: PROTONIX PO SCH (08:45)
[2019-10-17] MEDS: MOBIC PO SCH (08:45)
[2019-10-17] MEDS: FERROUS SULFATE PO SCH (08:45)
[2019-10-17] MEDS: COLACE PO SCH ×2 (08:46→22:45)
[2019-10-17] MEDS: ASPIRIN PO SCH (08:46)
[2019-10-17] MEDS: VITAMIN B-12 PO SCH (08:46)
[2019-10-17] MEDS: ZYRTEC PO SCH (08:46)
[2019-10-17] MEDS: JANUVIA PO SCH (08:46)
[2019-10-17] MEDS: REQUIP PO SCH ×3 (08:47→18:30)
[2019-10-17] MEDS ORDERED: LEVOCETIRIZINE DIHYDROCHLORIDE 5 MG PO SCH (09:00)
[2019-10-17] MEDS ORDERED: ASPIRIN EC PO SCH (09:00)
--- NOTE | 2019-10-17 20:48 | PROGRESS NOTE ---
DATE: 10/17/2019 SUBJECTIVE: The patient is resting comfortably in bed. She has no complaints at this time. No acute events noted overnight. OBJECTIVE: Vital Signs: Temperature 97.6 degrees, blood pressure 154/61, heart rate 74, respirations 18, O2 saturation 99% on room air. General: This is a chronically ill-appearing elderly female lying in bed in no acute distress. Heart: S1, S2 normal. Regular rate and rhythm. Lungs: Equal air entry bilaterally. No wheezing. No rales. Abdomen: Positive bowel sounds. Soft, nontender, nondistended. Extremities: No edema. No cyanosis. Neurologic: The patient is alert and oriented. LABS: Hemoglobin 9, hematocrit 27, BUN 39, creatinine 1.4, sodium 134, potassium 4.9. ASSESSMENT AND PLAN: 1. Status post right total knee replacement. Management as per the orthopedic surgeon. Gun Synchronizer states that the patient can be discharged to rehab on Tuesday after three full nights in the hospital. Continue with physical therapy while hospitalized. 2. Acute kidney injury on chronic kidney disease. Slowly improving. Continue with normal saline. 3. Hypothyroidism. Continue on Synthroid. 4. Diabetes mellitus type 2. Continue on the current insulin regimen. 5. Neuropathy. Continue on gabapentin. 6. Gastroesophageal reflux disease. Continue on Protonix. 7. Restless legs syndrome. Continue on Requip. 8. Hypertension. Continue on the current antihypertensive regimen. 9. Constipation. We will start the patient on MiraLAX. 10. Deep venous thrombosis prophylaxis. The patient is on aspirin. cc: Sade Brush MD
[2019-10-17] MEDS: TRICOR PO SCH (22:45)
[2019-10-17] MEDS: PRAVACHOL PO SCH (22:45)
[2019-10-17] MEDS: MIRALAX PO SCH (22:48)
[2019-10-18] MEDS ORDERED: HALL'S COUGH LOZENGE MT PRN (03:07)
[2019-10-18] MEDS: TYLENOL PO SCH ×4 (05:49→21:58)
[2019-10-18] MEDS: ULTRAM PO SCH ×4 (05:49→21:59)
[2019-10-18] MEDS: SYNTHROID PO SCH ×2 (05:50→06:54)
[2019-10-18 06:38] LABS: HEMOGLOBIN 9.1 g/dL (12.0-16.0)
[2019-10-18] MEDS: HUMALOG SUBQ SCH ×4 (06:53→22:04)
[2019-10-18 07:12] LABS: CALCIUM 9.2 mg/dL (8.8-10.2); CREATININE 1.1 mg/dL (0.5-0.9); POTASSIUM 4.6 mmol/L (3.5-5.1)
[2019-10-18] MEDS: VENTOLIN HFA INH PRN (08:46)
[2019-10-18] MEDS: JANUVIA PO SCH (08:49)
[2019-10-18] MEDS: VITAMIN B-12 PO SCH (08:49)
[2019-10-18] MEDS: NEURONTIN PO SCH ×2 (08:49→21:59)
[2019-10-18] MEDS: NORVASC PO SCH (08:49)
[2019-10-18] MEDS: MOBIC PO SCH (08:49)
[2019-10-18] MEDS: ASPIRIN PO SCH (08:49)
[2019-10-18] MEDS: COLACE PO SCH (08:53)
[2019-10-18] MEDS: FERROUS SULFATE PO SCH (08:54)
[2019-10-18] MEDS: MIRALAX PO SCH (08:55)
[2019-10-18] MEDS: PERIDEX MT SCH ×2 (08:57→21:58)
[2019-10-18] MEDS: VASOTEC PO SCH ×2 (08:57→21:58)
[2019-10-18] MEDS: ZYRTEC PO SCH (08:57)
[2019-10-18] MEDS: REQUIP PO SCH ×3 (08:58→17:57)
[2019-10-18] MEDS: PROTONIX PO SCH (08:58)
[2019-10-18] MEDS: RANEXA PO SCH ×2 (08:58→21:59)
[2019-10-18] MEDS ORDERED: LINZESS PO SCH (09:00)
[2019-10-18] MEDS: AMARYL PO SCH (09:05)
[2019-10-18] MEDS ORDERED: TUSSIONEX LIQUID PO ONE (11:10)
[2019-10-18] MEDS ORDERED: ROBITUSSIN-DM PO PRN (11:11)
[2019-10-18] MEDS ORDERED: DULCOLAX PR ONE (11:13)
--- NOTE | 2019-10-18 13:12 | ORTHOPAEDICS PROGRESS NOTE ---
DATE: 10/18/2019 Ms. Avitia is seen status post total knee replacement. She is afebrile with stable vital signs. She is mobilizing well. We will plan tentatively on getting her out to rehab tomorrow. That will depend on bed availability and medical status. Currently, she appears to be stable and progressing. cc: MD Sade Phillips MD
[2019-10-18] MEDS: OXY IR PO PRN (14:27)
[2019-10-18] MEDS: DUONEB (A & A) INH SCH ×4 (15:13→23:17)
--- NOTE | 2019-10-18 15:19 | Diag Imaging Result Doc PS360 ---
EXAM: CT THORAX W/O CONTRAST 10/18/2019 HISTORY: dyspnea TECHNIQUE: This exam was performed using automated exposure control, adjustment of mA or kV according to patient size, and/or use of iterative reconstruction technique. COMMENT: There are calcifications in the thoracic aorta particularly in the arch. There is extensive calcification in the coronary arteries. There is no evidence of aneurysm. There is a small hiatal hernia. There are no abnormal fluid collections. There is some bronchiectasis and fibrosis in the medial right middle lobe. There is a densely calcified nodule adjacent to the descending aorta in the left lower lobe. There is some bronchiectasis in the lower lobes and atelectasis or fibrosis is present in the posterior costophrenic sulcus of the left lower lobe. IMPRESSION: Minimal fibrotic and bronchiectatic changes. No evidence of acute disease. Electronically signed by Madi Burrell 10/18/2019 3:16 PM
[2019-10-18] MEDS: TESSALON PO SCH ×3 (15:49→17:57)
[2019-10-18] MEDS: ROCEPHIN 1 GM in NS 50 ML IV SCH (15:50)
--- NOTE | 2019-10-18 16:24 | PROGRESS NOTE ---
DATE: 10/18/2019 SUBJECTIVE: The patient complains of persistent cough. She is unable to cough anything up but it kept her up all night. OBJECTIVE: Vital Signs: Temperature 98.6 degrees, blood pressure 104/51, heart rate 89, respirations 18, O2 saturation 97% on room air. General: This is a chronically ill-appearing elderly female sitting up in the chair in no acute distress. Heart: S1, S2 normal. Regular rate and rhythm. Lungs: Equal air entry bilaterally. No wheezing. No rales. Abdomen: Positive bowel sounds. Soft, nontender, nondistended. Extremities: No edema, no cyanosis. Neurologic: The patient is alert and oriented x3. LABS: Hemoglobin 9.1, hematocrit 29. Sodium 137, potassium 4.6, chloride 101, CO2 27, BUN 39, creatinine 1.1, glucose 63. Chest CT reveals bronchiectasis in the lower lobes and atelectasis versus fibrosis. No acute disease. ASSESSMENT AND PLAN: 1. Bronchiectasis with acute bronchitis. We will start the patient on antibiotic therapy. We will also add bronchodilator therapy. We will plan to switch the patient to oral antibiotic therapy tomorrow. 2. Status post right total knee replacement. Stable. Continue with physical therapy. 3. Acute kidney injury on chronic kidney disease. Improved. 4. Diabetes mellitus type 2. The patient is hypoglycemic, so we will discontinue the glipizide at this time until she starts eating more. 5. Hypertension. Stable. Continue on the current antihypertensive regimen. 6. Restless leg syndrome. Continue on Requip. 7. Neuropathy. Continue on gabapentin. 8. Hypothyroidism. Continue on Synthroid. 9. Anemia. Stable. 10. Constipation. Continue on MiraLAX. Will also add Dulcolax. 11. Deep vein thrombosis prophylaxis. The patient is on full-dose aspirin. DISPOSITION: The patient should be stable for discharge to inpatient rehab tomorrow. cc: Sade Brush MD MTDD
[2019-10-18] MEDS: NS 1,000 ML IV SCH (17:33)
[2019-10-18] MEDS ORDERED: ANUSOL-HC CREAM PR ONE (18:02)
[2019-10-18] MEDS: TRICOR PO SCH (21:59)
[2019-10-18] MEDS: PRAVACHOL PO SCH (22:00)
[2019-10-19] MEDS: TYLENOL PO SCH ×3 (03:03→15:30)
[2019-10-19] MEDS: ULTRAM PO SCH ×3 (03:03→15:30)
[2019-10-19] MEDS: DUONEB (A & A) INH SCH ×4 (03:48→14:39)
[2019-10-19] MEDS: SYNTHROID PO SCH ×2 (05:55→06:48)
[2019-10-19] MEDS: HUMALOG SUBQ SCH ×2 (06:48→11:15)
[2019-10-19 07:04] LABS: HEMATOCRIT 28.1 % (37.0-47.0); MCV 96.9 FL (81-99); MPV 10.6 FL (7.4-10.4); RBC 2.9 XMIL (4.2-5.4); RDW 14.1 % (11.5-14.5); WBC 7.05 X1000 (4.8-10.8)
[2019-10-19 07:14] LABS: CALCIUM 9.3 mg/dL (8.8-10.2); CREATININE 1.3 mg/dL (0.5-0.9); POTASSIUM 5.2 mmol/L (3.5-5.1)
--- NOTE | 2019-10-19 08:01 | DISCHARGE SUMMARY ---
ADMISSION DATE: 10/16/2019 DISCHARGE DATE: 10/19/2019 ADMITTING DIAGNOSES: 1. Right knee osteoarthritis. 2. Asthma. 3. Coronary artery disease. 4. Congestive heart failure. 5. Hypertension. DISCHARGE DIAGNOSES: 1. Right knee osteoarthritis. 2. Asthma. 3. Coronary artery disease. 4. Congestive heart failure. 5. Hypertension. PROCEDURES: On 10/16/2019, Dr. Barker performed a right total knee arthroplasty. HOSPITAL COURSE: Ms. Avitia is a 73-year-old female, who Dr. Barker has been following in the office for degenerative joint disease on the right side. She had been being treated conservatively. Once those conservative measures began to fail, they started discussing a right total knee replacement. She wished to proceed with that. Risks and benefits were discussed. She was taken to the operating room on 10/16/[address] Barker. She tolerated the procedure well and was transferred to the recovery room. After satisfactory recovery, she was transferred to [address] [place] [address]. She has had a fairly uneventful postoperative course. However, she did have several comorbidities prior to the surgery. The hospitalist was consulted for medical management of the patient while she was in-house. She did have slightly elevated creatinine suggesting an acute kidney injury in the setting of chronic kidney disease. Renal medications were adjusted and labs were followed. Her creatinine is currently down to 1.3. She has a history of chronic obstructive pulmonary disease, which was followed, and she is doing well from that standpoint. Her current vital signs: Her temperature is 97.5 degrees, her pulse is 78, respirations are 16, her blood pressure is 148/57, and she is 100% on room air. DISCHARGE LABORATORY DATA: Her white count is 7.05. Her hemoglobin and hematocrit are 9 and 28.1. Her platelet count is 224. Her BUN and creatinine are 44 and 1.3. The hospital creatinine was 1.6. Ms. Avitia has worked with physical therapy and has been able to mobilize, and has been full weightbearing on this right side. She has voided and, at this time, she is ready for discharge. DISCHARGE MEDICATIONS: 1. Norvasc 10 mg p.o. daily. 2. Aspirin 325 mg p.o. daily for DVT prophylaxis. 3. Tessalon Perles 100 mg p.o. t.i.d. 4. Zyrtec 10 mg p.o. daily. 5. Catapres 1 each TD q. 7 days. 6. Vitamin B 12 1000 mcg p.o. daily. 7. Vasotec 20 mg p.o. b.i.d. 8. Tricor 145 mg p.o. at bedtime. 9. Lasix 20 mg p.o. p.r.n. edema. 10. Iron 325 mg p.o. daily. 11. Neurontin 400 mg p.o. daily. 12. Synthroid 112 mcg p.o. daily. 13. Linzess 144 mcg p.o. every other day. 14. Oxycodone 5 mg every 3 hours as needed for pain. 15. Protonix 40 mg p.o. daily. 16. Pravachol 20 mg p.o. daily. 17. Ranexa 500 mg p.o. daily. 18. Requip 0.25 p.o. daily. 19. Januvia 50 mg p.o. daily. 20. Zanaflex 2 mg p.o. q. 12 hours. 21. Levaquin 500 mg p.o. daily for 5 days. DISCHARGE DISPOSITION: Ms. Avitia is being discharged to a rehab facility. This is because of her comorbidities, as well as her need for continued rehabilitation. She is going to continue to work on mobilizing and to increasing her activity level as much as possible. We will do aspirin daily for DVT prophylaxis. We will do Percocet for pain control. We will do a prophylactic Levaquin treatment for 5 days. She is going to see Dr. Barker in 10 to 12 days in the office to get her sutures out. She can be full weightbearing on this right knee, and we want her mobilizing every day multiple times a day. I want her out of bed for all meals. We want her to call with any questions or concerns. I did review signs and symptoms of postoperative infection, as well as postoperative DVT. She understands and knows to call the office with any questions or concerns. Dictated by YANELI Ellis for Marciano Barker MD cc: YANELI Ellis MD Katherine Takundwa, MD
[2019-10-19] MEDS: ASPIRIN PO SCH (08:13)
[2019-10-19] MEDS: PERIDEX MT SCH (08:13)
[2019-10-19] MEDS: RANEXA PO SCH (08:14)
[2019-10-19] MEDS: NEURONTIN PO SCH (08:14)
[2019-10-19] MEDS: PROTONIX PO SCH (08:14)
[2019-10-19] MEDS: VITAMIN B-12 PO SCH (08:14)
[2019-10-19] MEDS: ZYRTEC PO SCH (08:14)
[2019-10-19] MEDS: TESSALON PO SCH ×2 (08:15→12:42)
[2019-10-19] MEDS: FERROUS SULFATE PO SCH (08:15)
[2019-10-19] MEDS: NORVASC PO SCH (08:15)
[2019-10-19] MEDS: REQUIP PO SCH ×2 (08:15→12:42)
[2019-10-19] MEDS: JANUVIA PO SCH (08:15)
[2019-10-19] MEDS ORDERED: ANUSOL-HC CREAM PR SCH (09:00)
[2019-10-19] MEDS: VENTOLIN HFA INH PRN (09:06)
[2019-10-19 11:46] VITALS: BP 142/55
[2019-10-19] MEDS: ROCEPHIN 1 GM in NS 50 ML IV SCH (12:03)
[2019-10-19] MEDS: NS 1,000 ML IV SCH (15:30)
[2019-10-21] MEDS ORDERED: CATAPRES-TTS-3 TD SCH (09:00)
== END 2019-10-19 15:17 | DRG 470 ==
LOC: SURHOLD 06:25 → 4N 10:10
PROVIDERS: ADMIT Internal Medicine; ATTEND Orthopaedic Surgery Adult Reconstructive Orthopaedic Surgery